=== PATIENT | male | born 1990 | race Caucasian/White ===

== ENCOUNTER 2023-04-05 13:25 | Emergency (ER) | payer BC ==
[~2023-04-05] VITALS: Ht 175.3 cm; Wt 77.1 kg
[2023-04-05 13:59] VITALS: BP 152/106; PULSE 136; RESP 17; TEMP 97.6; O2SAT 98
[2023-04-05] MEDS ORDERED: NACL 0.9% 1,000 ML IV ONE (14:20)
[2023-04-05 14:51] LABS: BASOPHILS % (AUTO) 0.3 % (0.0-2.0); EOSINOPHILS # (AUTO) 0.1 K/uL (0-0.4); EOSINOPHILS % (AUTO) 0.8 % (0.0-4.0); HEMATOCRIT 46.4 % (36-52); HEMOGLOBIN 16.1 g/dL (12.0-18.0); LYMPHOCYTES % (AUTO) 17.8 % (20.5-51.1); MEAN CORPUSCULAR HEMOGLOBIN 29 pg (27-31); MEAN CORPUSCULAR HGB CONC 35 g/dL (33-37); MEAN CORPUSCULAR VOLUME 84.6 fL (80-94); MONOCYTES # (AUTO) 0.8 K/uL (0.8-1.0); MONOCYTES % (AUTO) 7.1 % (1.7-9.3); NEUTROPHILS # (AUTO) 8.4 K/uL (1.8-7.7); PLATELET COUNT (AUTO) 222 K/uL (140-450); RED BLOOD CELL COUNT(AUTO) 5.48 MIL/uL (4.20-6.10); RED CELL DISTRIBUTION WIDTH 13.4 % (11.6-13.7); WHITE BLOOD COUNT (AUTO) 11.3 K/uL (4.8-10.8)
[2023-04-05 15:05] LABS: AMPHETAMINE, URINE NEGATIVE ng/ml (NEG <=1000); BARBITURATE, URINE NEGATIVE ng/ml (NEG <=200); BENZODIAZEPINE, URINE NEGATIVE ng/mL (NEG <=200); CANNABINOID, URINE NEGATIVE ng/mL (NEG <=50); COCAINE, URINE NEGATIVE ng/mL (NEG <=300); OPIATE, URINE NEGATIVE ng/mL (NEG <=2000); PHENCYCLIDINE SCREEN,URINE NEGATIVE ng/mL (NEG <=25)
[2023-04-05 15:08] LABS: INR 0.99 (0.8-1.2); PARTIAL THROMBOPLASTIN TIME 29.1 secs (22-35.6); PROTHROMBIN TIME 10.4 secs (10.8-13.4)
[2023-04-05 15:13] LABS: ALBUMIN 4.3 g/dL (3.4-5.0); ANION GAP 13.3 (8-16); CALCIUM 9.3 mg/dL (8.5-10.1); CARBON DIOXIDE 24.1 mmol/L (21-32); CREATININE 1.1 mg/dL (0.6-1.3); POTASSIUM 3.4 mmol/L (3.5-5.1); TOTAL BILIRUBIN 0.6 mg/dL (0.0-1.0); TOTAL PROTEIN, SERUM 8.6 g/dL (6.4-8.2)
[2023-04-05 15:15] LABS: PHOSPHORUS 1.8 mg/dL (2.5-4.9)
[2023-04-05 15:25] LABS: D-DIMER < 100 ng/ml (0-400)
[2023-04-05 15:39] LABS: THYROID STIMULATING HORMONE 0.74 uIU/mL (0.34-3.74)
[2023-04-05 16:02] VITALS: BP 157/101; PULSE 73; RESP 16; TEMP 98.3
[2023-04-05 16:04] VITALS: O2SAT 98
== END 2023-04-05 16:02 | disposition home or self-care (01) ==
LOC: MED 13:25
DX: R00.2 Palpitations (principal); E87.6 Hypokalemia; I10 Essential (primary) hypertension; Z79.899 Other long term (current) drug therapy
CPT/HCPCS: 36415; 71045; 80053; 80305; 83735; 83880; 84100; 84443; 84484; 85025; 85379; 85610; 85730; 93005; 96360; 99285; J7030